=== PATIENT | female | born 1945 | race Caucasian/White ===

== ENCOUNTER 2021-04-20 21:21 | Inpatient (IN) | payer MEDICARE, OTHER ==
[~2021-04-20] VITALS: Ht 165.1 cm; Wt 66.4 kg
--- NOTE | 2021-04-20 20:40 | NUR ---
Admit Via EMS from [facility] ER. Patient c/o RLQ pain x 3 days, "feeling sick-like a cold-x 1 week w/ sore throat, runny nose and tired." Lives alone. Feeling constipated last week, took laxatives, + normal BM yesterday. Patient in NAD, very talkative.
[2021-04-20 20:45] VITALS: BP 116/68
[2021-04-20 22:49] VITALS: BP 105/55
[2021-04-21] VITALS (11 sets, daily range): BP systolic 94–115; BP diastolic 55–64
[2021-04-21] MEDS ORDERED: PIP/TAZO PER PHARMACY MC PRN
[2021-04-21] MEDS ORDERED: MORPHINE SULFATE 4 MG/ML INJ. IVP PRN (00:15)
[2021-04-21] MEDS: PIPERACILLIN/TAZOBACTAM 2.25 GM in IV NORMAL SALINE 50ML 50 ML IV SCH ×5 (00:30→23:56)
--- NOTE | 2021-04-21 07:52 | PDOC1 ---
History and Physical Date of Service: DOS: DATE: 04/21/21 TIME: 07:52 Chief Complaint: Chief Complain: Abdominal pain History of Present Illness: HPI: 75-year-old female with history of hypertension, hypothyroidism, chronic kidney disease stage III who comes in with abdominal pain that started a few days ago. She describes her pain is in the right lower quadrant and some nausea vomiting on the day before admission. She was seen at [facility] and transferred to [facility] for general surgery evaluation. Currently denies fevers, shortness of breath, chest pain, diarrhea, sick contacts or recent travel Past Medical/Surgical History: PMH/PSH: Past medical history of hypertension and hypothyroidism. Past surgical history for eyelid surgery, foot surgery, Botox injection Allergies: Allergies: Coded Allergies: No Known Drug Allergies (Unverified , 04/20/21) Family History: Family History: Reviewed with no relevant findings in the chart Social History: Social History: Denies alcohol, tobacco or drug abuse Current Medications: Current Medications Current Medications Piperacillin Sod/ Tazobactam Sod (Zosyn Per Pharmacy) 1 each PRN DAILY PRN MC SEE COMMENTS; Start 04/21/21 at 00:00 Sodium Chloride 1,000 ml @ 75 mls/hr [id number] IV Last administered on 04/21/21at 00:00; Start 04/21/21 at 00:00 Ondansetron HCl (Zofran) 4 mg PRN Q6HRS PRN IVP NAUSEA/VOMITING 1ST CHOICE; Start 04/21/21 at 00:00 Morphine Sulfate (Morphine Sulfate) 2 mg PRN Q2HR PRN IVP MODERATE PAIN 4-6; Start 04/21/21 at 00:00 Morphine Sulfate (Morphine Sulfate) 4 mg PRN Q2HR PRN IVP SEVERE PAIN 7-10; Start 04/21/21 at 00:15 Piperacillin Sod/ Tazobactam Sod 2.25 gm/Sodium Chloride 50 ml @ 100 mls/hr Q6HRS IV Last administered on 04/21/21at 06:14; Start 04/21/21 at 00:30 ROS: Review of Systems Review of System REVIEW OF SYSTEMS: GENERAL: Denies weakness SKIN: No bruising, hair changes or rashes. EYES: No blurred, double or loss of vision. NOSE AND THROAT: No history of nosebleeds, hoarseness or sore throat. HEART: No history of palpitations, chest pain or shortness of breath on exertion. LUNGS: Denies cough, hemoptysis, wheezing or shortness of breath. GASTROINTESTINAL: Positive for abdominal pain GENITOURINARY: No history of frequency, urgency, hesitancy or nocturia. NEUROLOGIC: Denies history of numbness, tingling, or tremor. PSYCHIATRIC: No history of panic, anxiety or depression. ENDOCRINE: No history of heat or cold intolerance, polyuria or polydipsia. EXTREMITIES: Denies joint pain, pain on walking or stiffness. Physical Exam: Vital Signs: Vital Signs Date Time Temp Pulse Resp B/P (MAP) Pulse Ox O2 Delivery O2 Flow Rate FiO2 04/21/21 06:33 97.6 65 18 94/55 (68) 94 Room Air 97.6 Physcial Exam: General: Well developed, well nourished, no acute distress, well appearing HEENT: Pupils equally round and reactive to light, EOMI, no discharge, normal conjunctiva Neck: Supple, no nuchal rigidity, no JVD, trachea midline, no tenderness Cardiac: RRR, no murmurs, no gallops, no rubs Chest/Lungs: CTAB, no wheeze, no rhonchi, no crackles Abdomen: soft, non-distended, no guarding, no peritoneal signs, appropriate right lower quadrant tenderness Back: No tenderness Extremities: no edema, pulses intact, non-tender,capillary refill <3 sec bilateral upper and lower extremities, Neuro: Alert and oriented x 4, no focal deficits, normal speech Labs: Labs: Labs reviewed Images: Images Images reviewed revealing localized appendiceal inflammation Assessment/Plan Assessment/Plan Acute abdominal pain secondary to acute appendicitis History of hypertension History of hypothyroidism History of CKD stage III Admit to hospitalist service for further management General surgery consult for laparoscopic appendectomy N.p.o. Continue IV fluids Continue empiric IV antibiotics Lovenox for DVT prophylaxis Protonix GI prophylaxis CODE STATUS full Discussed with RN and SW Disposition inpatient management as above DPOA: Undesignated at this time Justifications for Admission Other Justification KINDRA ESQUEDA MD Apr 21, 2021 07:52
--- NOTE | 2021-04-21 08:24 | PDOC2 ---
JANI MCCRARY AMUSEMENT MACHINE MECHANIC 04/21/21 0824: CONSULT Date of Consult Date of Consult DATE: 04/21/21 TIME: 08:21 Reason for Consult Reason for Consult: acute appendicitis Referring Physician Referring Physician: ER Identification/Chief Complaint Chief Complaint abdominal pain Source Source: Chart review, Patient History of Present Illness Reason for Visit: 3 days of lower abdominal pain. Denies nausea or emesis. Does have co sntipation issues the last week. No fevers or chills at home Pain has improved since admission Past Medical History Cardiovascular: HTN Endocrine: Hypothyroidism Past Surgical History Past Surgical History: Hysterectomy Family History Family History: Other (noncontributory to current illness ) Social History No ALCOHOL: none Drugs: None Lives: with Family Current Medications Current Medications Current Medications Piperacillin Sod/ Tazobactam Sod (Zosyn Per Pharmacy) 1 each PRN DAILY PRN MC S EE COMMENTS; Start 04/21/21 at 00:00 Sodium Chloride 1,000 ml @ 75 mls/hr [id number] IV Last administered on 04/21/21at 00:00; Start 04/21/21 at 00:00 Ondansetron HCl (Zofran) 4 mg PRN Q6HRS PRN IVP NAUSEA/VOMITING 1ST CHOICE; Start 04/21/21 at 00:00 Morphine Sulfate (Morphine Sulfate) 2 mg PRN Q2HR PRN IVP MODERATE PAIN 4-6; Start 04/21/21 at 00:00 Morphine Sulfate (Morphine Sulfate) 4 mg PRN Q2HR PRN IVP SEVERE PAIN 7-10; Start 04/21/21 at 00:15 Piperacillin Sod/ Tazobactam Sod 2.25 gm/Sodium Chloride 50 ml @ 100 mls/hr Q6HRS IV Last administered on 04/21/21at 06:14; Start 04/21/21 at 00:30 Allergies Allergies: Coded Allergies: No Known Drug Allergies (Unverified , 04/20/21) ROS General: No: Chills, Other (fevers ) PSYCHOLOGICAL ROS: No: Anxiety, Depression Eyes: No Blurry vision, No Double vision HEENT: No: Heacaches, Sore Throat Hematological and Lymphatic: No: Bleeding Problems, Blood Clots Respiratory: No: Cough, Shortness of breath Cardiovascular: No Chest Pain, No Palpitations Gastrointestinal: Yes Other (see hpi) Genitourinary: No Dysuria, No Hematuria Musculoskeletal: No Joint Pain, No Muscle Pain Neurological: No Impaired Coord/balance, No Numbness/Tingling Skin: No Pruritus, No Rash Physical Exam General: Alert, Oriented X3, Cooperative HEENT: Atraumatic, PERRLA Lungs: Clear to auscultation, Normal air movement Heart: Regular rate, Normal S1, Normal S2 Abdomen: Soft, Other (ND, moderate RLQ TTP ) Extremities: No clubbing, No cyanosis Skin: No rashes, No breakdown Neuro: Normal gait, Normal speech MUSCULOSKELETAL: No deformity, No swelling Vitals VITALS Vital Signs Date Time Temp Pulse Resp B/P (MAP) Pulse Ox O2 Delivery O2 Flow Rate FiO2 04/21/21 06:33 97.6 65 18 94/55 (68) 94 Room Air 97.6 Assessment/Plan Assessment/Plan acute appendicitis plan lap appy today consult, chart 25 min ARABELLA CALDERON MD 04/21/21 1124: CONSULT Assessment/Plan Assessment/Plan Pt seen and examined by myself; 75 year old female with abdominal pain last 3-4 days, initially across mid abdomen but now in RLQ, no N,V; ER evaluation consistent with appendicitis; PMH/PSH/ROS/SH as above; exam: alert, oriented no distress, lungs clear, heart RR and R, abdomen soft, tender with palpation in RLQ, no masses, ext neg for edema; labs and CT reviewed; A/P) RLQ pain, suspect appendicitis, plan to OR for laparoscopy. The details and risks of surgery were discussed with the patient. She understands and would like to proceed. JANI MCCRARY APRN Apr 21, 2021 08:24 ARABELLA CALDERON MD Apr 21, 2021 11:24
[2021-04-21] MEDS ORDERED: IV RINGERS,LACTATED 1000ML 1,000 ML IV SCH (10:30)
[2021-04-21] MEDS ORDERED: HYDROmorphone 2 MG/ML INJ. IVP PRN (10:30)
[2021-04-21] MEDS ORDERED: fentaNYL PF VIAL 100 MCG/2 ML VIAL IVP PRN (10:30)
[2021-04-21] MEDS ORDERED: MORPHINE SULFATE 2 MG/ML INJ. IVP PRN ×2 (10:30)
[2021-04-21] MEDS ORDERED: BUPIVACAINE-EPI 0.5% 30 ML VIAL KIT. ONE (11:04)
[2021-04-21] MEDS ORDERED: ONDANSETRON PF 4 MG/2 ML VIAL. ONE (11:12)
[2021-04-21] MEDS ORDERED: LIDOCAINE 2% PF 5 ML VIAL. ONE (11:12)
[2021-04-21] MEDS ORDERED: fentaNYL PF VIAL 100 MCG/2 ML VIAL ONE ×2 (11:12→14:10)
[2021-04-21] MEDS ORDERED: PROPOFOL 10 MG/ML (20ML) VIAL. IV ONE (11:12)
[2021-04-21] MEDS ORDERED: ROCURONIUM 50 MG/5 ML VIAL. ONE (11:12)
[2021-04-21] MEDS ORDERED: MIDAZOLAM HCL/PF 2 MG/2 ML VIAL. ONE (11:12)
[2021-04-21] MEDS ORDERED: SEVOFLURANE 31 TO 60 MINUTES. IH ONE (11:12)
[2021-04-21] MEDS ORDERED: DEXAMETHASONE SOD PHOS 4 MG/ML VIAL ONE (11:12)
[2021-04-21] MEDS ORDERED: IV NORMAL SALINE 1000ML BAG 1,000 ML IV SCH (11:45)
[2021-04-21] MEDS ORDERED: ZOLPIDEM 5 MG TABLET. PO PRN (11:45)
[2021-04-21] MEDS ORDERED: DEXTROSE 50% 25 GM / 50ML DISP.SYRIN. IV PRN (11:45)
[2021-04-21] MEDS ORDERED: SENNOSIDES 8.6 MG TABLET PO PRN (11:45)
[2021-04-21] MEDS ORDERED: diphenhydrAMINE 50 MG/ML VIAL IVP PRN (11:45)
[2021-04-21] MEDS ORDERED: LORazepam 0.5 MG TABLET PO PRN (11:45)
[2021-04-21] MEDS ORDERED: PROCHLORPERAZINE 10 MG/2 ML VIAL. IV PRN (11:45)
[2021-04-21] MEDS ORDERED: DOCUSATE SODIUM 100 MG CAPSULE. PO PRN (11:45)
[2021-04-21] MEDS ORDERED: HYDROcodone/APAP 5/325MG 1 TAB TABLET PO PRN (11:45)
[2021-04-21] MEDS ORDERED: ONDANSETRON PF 4 MG/2 ML VIAL. IVP PRN ×2 (11:45)
[2021-04-21] MEDS ORDERED: ACETAMINOPHEN 325 MG TABLET. PO PRN (11:45)
[2021-04-21] MEDS ORDERED: diphenhydrAMINE HCL 25 MG CAPSULE PO PRN ×2 (11:45)
[2021-04-21] MEDS: ENOXAPARIN 40 MG/0.4 ML SYRINGE. SQ SCH (12:00)
[2021-04-21] MEDS ORDERED: NEOSTIGMINE METHYLSULFATE 5 MG/5 ML SYRINGE. ONE (12:44)
[2021-04-21] MEDS ORDERED: GLYCOPYRROLATE 1 MG/5 ML VIAL. ONE (12:44)
[2021-04-21] MEDS ORDERED: ePHEDrine PF IN SALINE 50 MG/10 ML SYRINGE. IV ONE (12:44)
--- NOTE | 2021-04-21 13:56 | PDOC4 ---
Operative Note Operative Note Preoperative Diagnosis: Acute Appendicitis Postoperative Diagnosis: Same Procedure: Laparoscopic appendectomy Surgeon: Wander Day Habilitation Specialist: Matthias Gonzalez MS 4 Anesthesia: Gen. EBL: 30 mL Specimen: Appendix to pathology Drains: None Complications: None Indication: The patient is a 75-year-old female who reported to the emergency department with abdominal pain. The evaluation is consistent with acute appendicitis. The patient was offered surgical treatment with a laparoscopic appendectomy. The risks of surgery were discussed which include bleeding, in fection, visceral injury, pain, anesthetic risk, potential need for additional surgery or procedure. The patient understands and would like to proceed. Description: The patient was taken to the operating room and placed supine on the operating table. Gen. anesthesia was performed. The abdomen was prepped with ChloraPrep and draped in a standard surgical manner. A supraumbilical incision was made through which a veress needle was inserted and a pneumoperitoneum was created. A visualized 5 mm trocar was inserted and the laparoscope was introduced. In the left lower quadrant a 5 mm trocar was inserted. In the suprapubic region a 12 mm trocar was inserted. The appendix was identified and appeared inflamed consistent with acute appendicitis. There was no clear evidence of perforation or periappendiceal abscess. There was a phlegmon reaction of the appendix and surrounding tissues. In addition the tissues were quite friable. With minimal manipulation the appendix fractured in its midportion. An Endo MAT 45 stapling device with a vascular load was used to transect this portion and it was placed in an endoscopic bag. We then were able to gradually free the remaining appendiceal stump down to its junction with the cecum. The proximal appendix was then amputated off the cecum using an Endo MAT 45 stapling device. This was also placed in an endoscopic bag and both were extracted at the suprapubic incision site. The fascia there was closed with 0 Vicryl and infiltrated with half percent Marcaine with epinephrine. The RLQ was visualized and the staple line appeared well intact and hemostasis was good. No other abnormalities were identified grossly. The remaining ports were removed and the pneumoperitoneum was relieved. The skin at all incision sites was closed with 4-0 Monocryl. Steri-Strips and dressings were applied. The patient tolerated the procedure well and was sent to the recovery room in stable condition. At the end of the case all counts were correct. ARABELLA CALDERON MD Apr 21, 2021 13:56
[2021-04-21] MEDS: fentaNYL PF VIAL 100 MCG/2 ML VIAL IVP PRN ×2 (14:14→14:38)
[2021-04-21] MEDS: PROCHLORPERAZINE 10 MG/2 ML VIAL. IVP PRN ×2 (14:15→14:38)
[2021-04-21] MEDS ORDERED: KETOROLAC 15 MG/ML VIAL. IVP ONE (14:30)
[2021-04-21] MEDS ORDERED: KETOROLAC 30 MG/ML VIAL. ONE (14:53)
[2021-04-21] MEDS: HYDROcodone/APAP 5/325MG 1 TAB TABLET PO PRN ×2 (15:46→23:21)
[2021-04-21] MEDS: IV NORMAL SALINE 1000ML BAG 1,000 ML IV SCH ×2 (20:29)
--- NOTE | 2021-04-21 23:30 | NUR ---
Awake, c/o "a little soreness" in her belly. Request 1/2 tab of Hydrocodone . Other 1/2 tab wasted w/ VALENTIN Sol.
[2021-04-22 02:39] VITALS: BP 106/55
[2021-04-22] MEDS: PIPERACILLIN/TAZOBACTAM 2.25 GM in IV NORMAL SALINE 50ML 50 ML IV SCH ×2 (05:42→12:28)
[2021-04-22 06:19] VITALS: BP 116/59
[2021-04-22] MEDS: HYDROcodone/APAP 5/325MG 1 TAB TABLET PO PRN (06:59)
[2021-04-22 08:25] LABS: BASO % 1 % (0-3); EOS % 0 % (0-3); HEMATOCRIT 29.4 % (36.0-47.0); HEMOGLOBIN 9.4 g/dL (12.0-15.5); LYMPH # 0.6 x10^3/uL (1.0-4.8); LYMPH % 11 % (24-48); MEAN CORPUSCULAR HEMOGLOBIN 25 pg (25-35); MEAN CORPUSCULAR HGB CONC 32 g/dL (31-37); MEAN CORPUSCULAR VOLUME 79 fL (79-100); MONO # 0.4 x10^3/uL (0.0-1.1); MONO % 7 % (0-9); NEUT # 4.2 x10^3/uL (1.8-7.7); NEUT % 81 % (31-73); PLATELET COUNT 252 x10^3/uL (140-400); RED BLOOD COUNT 3.74 x10^6/uL (3.50-5.40); RED CELL DISTRIBUTION WIDTH 14.8 % (11.5-14.5); WHITE BLOOD COUNT 5.2 x10^3/uL (4.0-11.0)
[2021-04-22 08:46] LABS: CALCIUM 8.3 mg/dL (8.5-10.1); CREATININE 1.4 mg/dL (0.6-1.0); GFR 36.7; PHOSPHORUS 4.6 mg/dL (2.6-4.7); POTASSIUM 4.3 mmol/L (3.5-5.1)
--- NOTE | 2021-04-22 10:00 | NUR ---
Ambulated to bathroom with stand by assist. Gait steady. Allowed pt to ambulate independently.
[2021-04-22 10:58] VITALS: BP 125/67
[2021-04-22] MEDS: IV NORMAL SALINE 1000ML BAG 1,000 ML IV SCH (12:17)
[2021-04-22] MEDS: ENOXAPARIN 40 MG/0.4 ML SYRINGE. SQ SCH (12:34)
--- NOTE | 2021-04-22 13:28 | PDOC ---
SURGICAL PROGRESS NOTE DATE: 04/22/21 TIME: 13:27 Subjective Pt with c/o mild fatigue, but otherwise doing well, ander PO Vital Signs Vital Signs Date Time Temp Pulse Resp B/P (MAP) Pulse Ox O2 Delivery O2 Flow Rate FiO2 04/22/21 10:58 98.1 63 18 125/67 (86) 98 Room Air 98.1 04/21/21 23:55 2.0 I&O Intake and Output 04/22/21 07:00 Intake Total 1850 ml Output Total 280 ml Balance 1570 ml Intake Oral 100 ml IV Total 1750 ml Output Urine Total 250 ml Estimated Blood Loss 30 ml # Voids 3 General: Alert, Oriented X3, Cooperative, No acute distress Abdomen: Soft, No tenderness Labs Laboratory Tests Test 04/22/21 07:45 White Blood Count 5.2 x10^3/uL (4.0-11.0) Red Blood Count 3.74 x10^6/uL (3.50-5.40) Hemoglobin 9.4 g/dL (12.0-15.5) Hematocrit 29.4 % (36.0-47.0) Mean Corpuscular Volume 79 fL (79-100) Mean Corpuscular Hemoglobin 25 pg (25-35) Mean Corpuscular Hemoglobin Concent 32 g/dL (31-37) Red Cell Distribution Width 14.8 % (11.5-14.5) Platelet Count 252 x10^3/uL (140-400) Neutrophils (%) (Auto) 81 % (31-73) Lymphocytes (%) (Auto) 11 % (24-48) Monocytes (%) (Auto) 7 % (0-9) Eosinophils (%) (Auto) 0 % (0-3) Basophils (%) (Auto) 1 % (0-3) Neutrophils # (Auto) 4.2 x10^3/uL (1.8-7.7) Lymphocytes # (Auto) 0.6 x10^3/uL (1.0-4.8) Monocytes # (Auto) 0.4 x10^3/uL (0.0-1.1) Eosinophils # (Auto) 0.0 x10^3/uL (0.0-0.7) Basophils # (Auto) 0.0 x10^3/uL (0.0-0.2) Sodium Level 139 mmol/L (136-145) Potassium Level 4.3 mmol/L (3.5-5.1) Chloride Level 107 mmol/L (98-107) Carbon Dioxide Level 23 mmol/L (21-32) Anion Gap 9 (6-14) Blood Urea Nitrogen 15 mg/dL (7-20) Creatinine 1.4 mg/dL (0.6-1.0) Estimated GFR (Cockcroft-Gault) 36.7 Glucose Level 116 mg/dL (70-99) Calcium Level 8.3 mg/dL (8.5-10.1) Phosphorus Level 4.6 mg/dL (2.6-4.7) Magnesium Level 2.0 mg/dL (1.8-2.4) Laboratory Tests Test 04/22/21 07:45 White Blood Count 5.2 x10^3/uL (4.0-11.0) Red Blood Count 3.74 x10^6/uL (3.50-5.40) Hemoglobin 9.4 g/dL (12.0-15.5) Hematocrit 29.4 % (36.0-47.0) Mean Corpuscular Volume 79 fL (79-100) Mean Corpuscular Hemoglobin 25 pg (25-35) Mean Corpuscular Hemoglobin Concent 32 g/dL (31-37) Red Cell Distribution Width 14.8 % (11.5-14.5) Platelet Count 252 x10^3/uL (140-400) Neutrophils (%) (Auto) 81 % (31-73) Lymphocytes (%) (Auto) 11 % (24-48) Monocytes (%) (Auto) 7 % (0-9) Eosinophils (%) (Auto) 0 % (0-3) Basophils (%) (Auto) 1 % (0-3) Neutrophils # (Auto) 4.2 x10^3/uL (1.8-7.7) Lymphocytes # (Auto) 0.6 x10^3/uL (1.0-4.8) Monocytes # (Auto) 0.4 x10^3/uL (0.0-1.1) Eosinophils # (Auto) 0.0 x10^3/uL (0.0-0.7) Basophils # (Auto) 0.0 x10^3/uL (0.0-0.2) Sodium Level 139 mmol/L (136-145) Potassium Level 4.3 mmol/L (3.5-5.1) Chloride Level 107 mmol/L (98-107) Carbon Dioxide Level 23 mmol/L (21-32) Anion Gap 9 (6-14) Blood Urea Nitrogen 15 mg/dL (7-20) Creatinine 1.4 mg/dL (0.6-1.0) Estimated GFR (Cockcroft-Gault) 36.7 Glucose Level 116 mg/dL (70-99) Calcium Level 8.3 mg/dL (8.5-10.1) Phosphorus Level 4.6 mg/dL (2.6-4.7) Magnesium Level 2.0 mg/dL (1.8-2.4) Assessment/Plan s/p lap appendectomy OK for d/c on PO abx. Justicifation of Admission Dx: Justifications for Admission: Justification of Admission Dx: N/A ENDY GARVIN MD Apr 22, 2021 13:28
--- NOTE | 2021-04-22 13:36 | PDOC3 ---
Discharge Summary Visit Information Date of Admission: Apr 20, 2021 Date of Discharge: Apr 22, 2021 Admitting Diagnosis: Acute appendicitis Final Diagnosis Acute appendicitis Brief Hospital Course Allergies Allergies Coded Allergies Type Severity Reaction Last Updated Verified No Known Drug Allergies 04/20/21 No Vital Signs Vital Signs Date Time Temp Pulse Resp B/P (MAP) Pulse Ox O2 Delivery O2 Flow Rate FiO2 04/22/21 10:58 98.1 63 18 125/67 (86) 98 Room Air 98.1 04/21/21 23:55 2.0 Lab Results Laboratory Tests Test 04/22/21 07:45 White Blood Count 5.2 x10^3/uL (4.0-11.0) Red Blood Count 3.74 x10^6/uL (3.50-5.40) Hemoglobin 9.4 g/dL (12.0-15.5) Hematocrit 29.4 % (36.0-47.0) Mean Corpuscular Volume 79 fL (79-100) Mean Corpuscular Hemoglobin 25 pg (25-35) Mean Corpuscular Hemoglobin Concent 32 g/dL (31-37) Red Cell Distribution Width 14.8 % (11.5-14.5) Platelet Count 252 x10^3/uL (140-400) Neutrophils (%) (Auto) 81 % (31-73) Lymphocytes (%) (Auto) 11 % (24-48) Monocytes (%) (Auto) 7 % (0-9) Eosinophils (%) (Auto) 0 % (0-3) Basophils (%) (Auto) 1 % (0-3) Neutrophils # (Auto) 4.2 x10^3/uL (1.8-7.7) Lymphocytes # (Auto) 0.6 x10^3/uL (1.0-4.8) Monocytes # (Auto) 0.4 x10^3/uL (0.0-1.1) Eosinophils # (Auto) 0.0 x10^3/uL (0.0-0.7) Basophils # (Auto) 0.0 x10^3/uL (0.0-0.2) Sodium Level 139 mmol/L (136-145) Potassium Level 4.3 mmol/L (3.5-5.1) Chloride Level 107 mmol/L (98-107) Carbon Dioxide Level 23 mmol/L (21-32) Anion Gap 9 (6-14) Blood Urea Nitrogen 15 mg/dL (7-20) Creatinine 1.4 mg/dL (0.6-1.0) Estimated GFR (Cockcroft-Gault) 36.7 Glucose Level 116 mg/dL (70-99) Calcium Level 8.3 mg/dL (8.5-10.1) Phosphorus Level 4.6 mg/dL (2.6-4.7) Magnesium Level 2.0 mg/dL (1.8-2.4) Laboratory Tests Test 04/22/21 07:45 White Blood Count 5.2 x10^3/uL (4.0-11.0) Red Blood Count 3.74 x10^6/uL (3.50-5.40) Hemoglobin 9.4 g/dL (12.0-15.5) Hematocrit 29.4 % (36.0-47.0) Mean Corpuscular Volume 79 fL (79-100) Mean Corpuscular Hemoglobin 25 pg (25-35) Mean Corpuscular Hemoglobin Concent 32 g/dL (31-37) Red Cell Distribution Width 14.8 % (11.5-14.5) Platelet Count 252 x10^3/uL (140-400) Neutrophils (%) (Auto) 81 % (31-73) Lymphocytes (%) (Auto) 11 % (24-48) Monocytes (%) (Auto) 7 % (0-9) Eosinophils (%) (Auto) 0 % (0-3) Basophils (%) (Auto) 1 % (0-3) Neutrophils # (Auto) 4.2 x10^3/uL (1.8-7.7) Lymphocytes # (Auto) 0.6 x10^3/uL (1.0-4.8) Monocytes # (Auto) 0.4 x10^3/uL (0.0-1.1) Eosinophils # (Auto) 0.0 x10^3/uL (0.0-0.7) Basophils # (Auto) 0.0 x10^3/uL (0.0-0.2) Sodium Level 139 mmol/L (136-145) Potassium Level 4.3 mmol/L (3.5-5.1) Chloride Level 107 mmol/L (98-107) Carbon Dioxide Level 23 mmol/L (21-32) Anion Gap 9 (6-14) Blood Urea Nitrogen 15 mg/dL (7-20) Creatinine 1.4 mg/dL (0.6-1.0) Estimated GFR (Cockcroft-Gault) 36.7 Glucose Level 116 mg/dL (70-99) Calcium Level 8.3 mg/dL (8.5-10.1) Phosphorus Level 4.6 mg/dL (2.6-4.7) Magnesium Level 2.0 mg/dL (1.8-2.4) Brief Hospital Course Ms Cuba is a 75-year-old female w/ PMHx hypothyroidism, HTN, CKD who p resented to [facility] ED in [place], [place] on 04/20/21 with lower abdominal pain that started on Tuesday04/17/21. Pain was located in the lower abdomen but reports more tenderness on the lower right side. Work-up in ER consisted of labs, urinalysis, EKG, CT abdomen pelvis. CT abdomen pelvis shows acute appendicitis. UA positive for infection. Patient started on Zosyn and Rocephin. Discussed results with patient. Advised patient she would need to be admitted for surgical consult. Transferred to [facility] for surgical consultation. WBC 7.8 with left shift, NA 130, CR 1.4, notes she has chronic kidney disease, COVID-19 was negative. Urine came back positive for group B strep. 3/: To OR for laparoscopic appendectomy with Dr. Viramontes. No perforation or abscess noted with localized phlegmon and friability noted. 3/2: Sodium improved pain improved passing flatus. No shortness of breath or chest pain no fevers. Able to ambulate without significant pain. Has not had a bowel movement feels the urge to. She is a bit anxious about discharge given she has divorce proceedings coming up in the near future. Given her friability, phlegmon and group B strep urinary tract infection will send home on renally dosed Augmentin for 5 additional days and have outpatient follow-up with general surgery in 1 to 2 weeks. Hydrocodone for pain PE: VS: Stable HEENT: Head normocephalic, atraumatic. NECK: Supple LUNGS: Clear to auscultation. HEART: RRR, S1, S2 present, pulses intact ABDOMEN: Soft, positive bowel sounds. Laparoscopic surgical sites clean, dry intact dressing EXTREMITIES: No cyanosis or edema. NEUROLOGIC: Normal speech, normal tone PSYCHIATRIC: Normal affect, normal mood. SKIN: No ulceration. Consults: General surgery Problem list: Acute abdominal pain secondary to acute appendicitis History of hypertension History of hypothyroidism History of CKD stage III Greater than 30 minutes spent on d/c home Discharge Information Condition at Discharge: Improved Follow Up: Weeks (1) Disposition/Orders: D/C to Home Justicifation of Admission Dx: Justifications for Admission: Justification of Admission Dx: N/A GEE REBOLLAR MD Apr 22, 2021 13:36
[2021-04-22] MEDS ORDERED: AMOX1TAB58 PO (13:39)
[2021-04-22] MEDS ORDERED: LACT1CAP19 PO (13:39)
[2021-04-22] MEDS ORDERED: HYDR-2761 PO (13:39)
--- NOTE | 2021-04-22 14:45 | NUR ---
Discharge instructions given. Answered questions and concerns. Verbalized understanding. Pt discharged home accompanied by friend. Escorted out by w/c.
[2021-04-22] MEDS ORDERED: LACTOBACILLUS RHAMNOSUS GG 1 CAPSULE. PO SCH (21:00)
--- NOTE | 2021-04-23 15:08 | PATHOLOGY ---
[facility] Accession Number: [id number] . 01 Material submitted: . appendix - APPENDIX . 01 Clinical history: . ACUTE APPENDICITIS LAP APPY . 02 Diagnosis: Appendix, laparoscopic appendectomy: - Acute appendicitis. (SHOAIB:william; 04/23/2021) R 04/23/2021 1159 Local . 02 Comment: There is no evidence of malignancy. (SHOAIBM:william; 04/23/2021) . 02 Electronically signed: . Sanya Basurto MD, Pathologist NPI- [id number] . 01 Gross description: . Fixative: Formalin Labeled: Appendix Appendix length: 5.3 cm upon reconstruction; received in two pieces) Appendix diameter: 0.4-0.7 cm Mesoappendix: Up to 2.2 cm (received separate from appendix) Proximal margin: Stapled Serosa: Pale berry to slightly hemorrhagic Cut surface: Pinpoint to slightly patent Luminal diameter: Up to 0.3 cm Perforation: None identified Lesions/abnormalities: None identified . Proximal margin and bisected tip in cassette A1. The remainder of the appendix is submitted in cassettes A2 and A3. (CAA; 04/22/2021) QAC/QAC 04/22/2021 0835 Local . 02 Pathologist provided ICD-10: K35.80 . 02 CPT . 320748 Specimen Comment: A courtesy copy of this report has been sent to [phone], [phone] Specimen Comment: [id number] Specimen Comment: Report sent to / DR CALDERON Performed at: [address], [place], [place] [id number] MD Dylon Ryder MD Phone: [phone] Performed at: 02 [facility] [address], [place] [id number] MD Sanya Basurto MD Phone: [phone]
== END 2021-04-22 14:45 | disposition home or self-care (01) | DRG 342 ==
LOC: 4 SOUTHEST 21:21
PROVIDERS: ADMIT Internal Medicine; ATTEND Internal Medicine
PROC: 0DTJ4ZZ Resection of Appendix, Percutaneous Endoscopic Approach (ICD-10-PCS; principal; 2021-04-21 11:00)
DX: K35.80 Unspecified acute appendicitis (principal); N39.0 Urinary tract infection, site not specified; I12.9 Hypertensive chronic kidney disease with stage 1 through stage 4 chronic kidney disease, or unspecified chronic kidney disease; N18.30 Chronic kidney disease, stage 3 unspecified; B95.1 Streptococcus, group B, as the cause of diseases classified elsewhere; E03.9 Hypothyroidism, unspecified; Z90.710 Acquired absence of both cervix and uterus
CPT/HCPCS: 36415; 80048; 83735; 84100; 85025; A4314; A4364; A4452; A4930; A6223; A6402; J0780; J1100; J1650; J1885; J2250; J2405; J2543; J2704; J2710; J3010; J3490; J7030; J7120; G0378